=== PATIENT | female | born 1965 | race American Indian/Alaskan Native ===

== ENCOUNTER 2022-04-02 20:59 | Emergency (ER) | payer SELFPAY ==
[2022-04-03 00:04] VITALS: BP 164/87
[2022-04-03] MEDS ORDERED: IBUPROFEN 800 MG TAB PO ONE (07:45)
[2022-04-03] MEDS ORDERED: predniSONE 20 MG TAB PO ONE (07:45)
--- NOTE | 2022-04-03 07:51 | Emergency Department Report ---
ED General Adult HPI - General Chief complaint: Upper Respiratory Infection Stated complaint: CHEST HURTS WITH BREATHING Time Seen by Provider: 04/03/22 07:44 Source: patient Mode of arrival: Ambulatory Limitations: No Limitations - History of Present Illness Initial comments: Patient 56-year-old female with history of bronchitis and hypertension who pre sents for cough productive yellow thick for 3 weeks. States chest wall pain with cough only. Patient denies wheezes or stridor denies shortness of breath. There is no dizziness or lightheadedness no nausea or vomiting. Symptoms are exacerbated by environmental exposure. Symptoms are relieved by nothing tried. Patient rates pain at 4/10 at this time. Pain is reproducible to deep inspiration. Patient to ED via POV patient is alert oriented x3 amatory with steady gait with no acute distress patient appears nontoxic. - Related Data Previous Rx's Medication Instructions Recorded Last Taken Type Albuterol Mdi (or & Nicu Only) 2 puff IH QID PRN #8.5 gram 04/03/22 Unknown Rx [ProAir HFA Inhaler] predniSONE [Deltasone] 40 mg PO DAILY 5 Days #10 tab 04/03/22 Unknown Rx Allergies Allergy/AdvReac Type Severity Reaction Status Date / Time No Known Allergies Allergy Verified 04/03/22 00:06 ED Review of Systems ROS: Stated complaint: CHEST HURTS WITH BREATHING Other details as noted in HPI Constitutional: denies: chills, fever ENT: congestion Respiratory: cough. denies: shortness of breath, stridor, wheezing Cardiovascular: chest pain (With cough and deep inspiration only). denies: dyspnea on exertion, paroxysmal nocturnal dyspnea Endocrine: no symptoms reported Gastrointestinal: denies: abdominal pain, nausea, diarrhea Genitourinary: denies: urgency, dysuria, discharge Musculoskeletal: denies: back pain, joint swelling, arthralgia Skin: denies: rash, lesions Neurological: denies: headache, weakness, paresthesias, vertigo Psychiatric: denies: anxiety, depression Hematological/Lymphatic: denies: easy bleeding, easy bruising ED Past Medical Hx - Past Medical History Hx Hypertension: Yes Additional medical history: Bronchitis - Medications Home Medications: Home Medications Medication Instructions Recorded Confirmed Last Taken Type Albuterol Mdi (or & Nicu Only) 2 puff IH QID PRN #8.5 gram 04/03/22 Unknown Rx [ProAir HFA Inhaler] predniSONE [Deltasone] 40 mg PO DAILY 5 Days #10 tab 04/03/22 Unknown Rx ED Physical Exam - General Limitations: No Limitations General appearance: alert, in no apparent distress - Head Head exam: Present: normocephalic, normal inspection - Eye Eye exam: Present: EOMI Pupils: Present: normal accommodation - ENT ENT exam: Present: normal orophraynx, mucous membranes moist, TM's normal bilaterally, normal external ear exam - Neck Neck exam: Present: normal inspection, full ROM. Absent: tenderness, lymphadenopathy - Respiratory Respiratory exam: Present: normal lung sounds bilaterally, chest wall tenderness (Anterior right lateral no ecchymosis no swelling no crepitus). Absent: respiratory distress, wheezes, stridor - Cardiovascular Cardiovascular Exam: Present: regular rate, normal rhythm, normal heart sounds. Absent: systolic murmur, diastolic murmur, rubs, gallop - GI/Abdominal GI/Abdominal exam: Present: soft, normal bowel sounds. Absent: distended, tenderness - Rectal Rectal exam: Present: deferred - Extremities Exam Extremities exam: Present: normal inspection, full ROM, normal capillary refill - Back Exam Back exam: Present: normal inspection, full ROM. Absent: CVA tenderness (R), CVA tenderness (L) - Neurological Exam Neurological exam: Present: alert, oriented X3, CN II-XII intact - Expanded Neurological Exam Expanded Patient oriented to: Present: person, place, time Speech: Present: fluid speech Best Eye Response ([place]asha): (4) open spontaneously Best Motor Response ([place]): (6) obeys commands Best Verbal Response (Natasha): (5) oriented Natasha Total: 15 - Psychiatric Psychiatric exam: Present: normal affect, normal mood - Skin Skin exam: Present: warm, dry, intact, normal color. Absent: rash ED Course Vital Signs 04/02/22 21:39 Temperature 98.8 F Pulse Rate 87 Respiratory 18 Rate Blood Pressure 164/87 O2 Sat by Pulse 97 Oximetry ED Medical Decision Making - EKG Data EKG shows normal: sinus rhythm, axis, intervals, QRS complexes, ST-T waves Rate: normal - EKG Data When compared to previous EKG there are: previous EKG unavailable Interpretation: normal EKG (Normal sinus rhythm no ST elevated MS interpreted by ED attending.) - Radiology Data Radiology results: report reviewed, image reviewed CHEST 2 VIEWS INDICATION / CLINICAL INFORMATION: chest pain. COMPARISON: None available. FINDINGS: SUPPORT DEVICES: None. HEART / MEDIASTINUM: No significant abnormality. LUNGS / PLEURA: No significant pulmonary abnormality. No significant pleural effusion. No pneumothorax. ADDITIONAL FINDINGS: No significant additional findings. IMPRESSION: 1. No acute abnormality of the chest. Signer Name: Vicente Mast MD Signed: 04/03/2022 8:18 AM Workstation Name: [id number] Transcribed By: LINH Dictated By: Vicente Mast MD Electronically Authenticated By: Vicente Mast MD Signed Date/Time: 04/03/22817 DD/ 6 TD/TT: - Medical Decision Making Chest x-ray is clear no infiltrates no opacities, EKG normal sinus rhythm no ST elevated MS interpreted by ED attending. Chest pain is improved with medications given in ED. Lung sounds are clear no wheezing no stridor. Chest pain is reproducible to deep palpation there is no crepitus no ecchymosis no step-off. This is straightforward bronchitis. Patient is alert oriented x3 has ambulated from room to bathroom and back to room without increased shortness of breath or wheezing. Plan DC home, refill albuterol inhaler as requested. Short burst prednisone, follow-up with primary care doctor in 2 to 3 days. Return to ED should symptoms worsen. Patient verbalized agreement understanding with discharge plan patient DC'd home in stable condition at this time. Critical care attestation.: If time is entered above; I have spent that time in minutes in the direct care of this critically ill patient, excluding procedure time. ED Disposition Clinical Impression: Bronchitis Disposition: 01 HOME / SELF CARE / HOMELESS Is pt being admited?: No Does the pt Need Aspirin: No Condition: Stable Instructions: Chronic Bronchitis (ED), Upper Respiratory Infection, Adult, [id number] Additional Instructions: Take medications as prescribed, follow-up with your doctor in 2 to 3 days. Return to emergency department should symptoms worsen. Prescriptions: predniSONE [Deltasone] 40 mg PO DAILY 5 Days #10 tab Albuterol Mdi (or & Nicu Only) [ProAir HFA Inhaler] 2 puff IH QID PRN #8.5 gram PRN Reason: Shortness Of Breath Referrals: PRIMARY CARE, [Primary Care Provider] - 3-5 Days AMBROCIO FELDMAN MD [Staff Physician] - 3-5 Days Forms: Work/School Release Form(ED) Time of Disposition: 08:48
--- NOTE | 2022-04-03 08:22 | XRay Report ---
CHEST 2 VIEWS INDICATION / CLINICAL INFORMATION: chest pain. COMPARISON: None available. FINDINGS: SUPPORT DEVICES: None. HEART / MEDIASTINUM: No significant abnormality. LUNGS / PLEURA: No significant pulmonary abnormality. No significant pleural effusion. No pneumothora x. ADDITIONAL FINDINGS: No significant additional findings. IMPRESSION: 1. No acute abnormality of the chest. Signer Name: Vicente Mast MD Signed: 04/03/2022 8:18 AM Workstation Name: [id number]
--- NOTE | 2022-04-04 19:42 | Electrocardiograph Report ---
[facility] Test Date: 2022-04-03 Test Time: 08:13:51 Pat Name: SENDY HILL Department: Room: Gender: F [employer]: [id number] : [id number] Requested By: JHONY LAZO Order Number: [id number] Reading MD: Lisha Day Measurements Intervals [place] Rate: 60 P: 58 [place]: 139 QRS: 32 QRSD: 86 T: 44 QT: 448 QTc: 447 Interpretive Statements Sinus rhythm No previous ECG available for comparison Electronically Signed On 04-04-2022 19:42:42 EDT by Lisha Day
== END 2022-04-03 09:26 | disposition home or self-care (01) ==
LOC: ED 20:59
DX: J40 Bronchitis, not specified as acute or chronic (principal); I10 Essential (primary) hypertension; Z79.899 Other long term (current) drug therapy
CPT/HCPCS: 71046; 93005; 99283